=== PATIENT | male | born 1975 | race American Indian/Alaskan Native ===

== ENCOUNTER 2019-11-26 22:45 | Observation (INO) | payer MEDICARE ==
[2019-11-27 02:30] LABS: Basophils # (Auto) 0.1 K/mm3 (0.0-0.1); Basophils % (Auto) 1.2 % (0.0-1.8); Eosinophils # (Auto) 0.6 K/mm3 (0.0-0.4); Eosinophils % (Auto) 7.1 % (0.0-4.3); Hematocrit 36.5 % (35.5-45.6); Hemoglobin 11.9 gm/dl (11.8-15.2); Lymphocytes # (Auto) 1.7 K/mm3 (1.2-5.4); Lymphocytes % (Auto) 21.1 % (13.4-35.0); Mean Corpuscular HGB Conc 33 % (32-34); Mean Corpuscular Volume 89 fl (84-94); Monocytes # (Auto) 0.7 K/mm3 (0.0-0.8); Monocytes % (Auto) 8.9 % (0.0-7.3); Platelet Count 260 K/mm3 (140-440); Red Blood Count 4.09 M/mm3 (3.65-5.03); Red Cell Distribution Width 13.8 % (13.2-15.2)
[2019-11-27] MEDS ORDERED: SODIUM CHLORIDE 0.9% 1000 ML 1,000 ML IV ONE (02:50)
[2019-11-27 02:52] LABS: Calcium 9.7 mg/dL (8.4-10.2)
--- NOTE | 2019-11-27 02:54 | Emergency Department Report ---
HPI - General Chief Complaint: Hyperglycemia Time Seen by Provider: 11/27/19 02:43 - HPI HPI: Room 5 The patient is a 43-year-old male presenting with a chief complaint of hyperglycemia. The patient is a history of type 1 diabetes and is on an insulin pump. Patient states at 08:00 this morning he noticed that his pump ran out of insulin. Patient says glucose was greater than 400. The patient went to place a refill but realizes he left his insulin refills in [place]. Patient states he attempted to go to the store to buy more insulin but all the pharmacies were closed Location: [See above] Duration: [See above] Quality: [See above] Severity: [See above] Timing: [See above] Context: [See above] Modifying factors: [See above] Associated signs and symptoms: [see above] ED Past Medical Hx - Past Medical History Previous Medical History?: Yes Hx Hypertension: Yes Hx Diabetes: Yes (Type 1) Hx Renal Disease: Yes (ESRD. HD qT, Th, Sat) Additional medical history: Sarcoidosis - Surgical History Past Surgical History?: No - Family History Family history: no significant - Social History Smoking Status: Current Every Day Smoker (1/3 pack per day) Substance Use Type: None (denies illicit drug use) ED Review of Systems ROS: Stated complaint: MED REFILL, ELEVATED BLOOD SUGAR Other details as noted in HPI Constitutional: no symptoms reported Eyes: denies: eye pain ENT: denies: throat pain Respiratory: no symptoms reported Cardiovascular: denies: chest pain Endocrine: no symptoms reported Gastrointestinal: denies: abdominal pain Neurological: denies: headache Physical Exam - Physical Exam Vital Signs: Vital Signs 11/27/19 00:25 Temperature 98.3 F Pulse Rate 88 Respiratory 18 Rate Blood Pressure 145/90 O2 Sat by Pulse 98 Oximetry Physical Exam: GENERAL: The patient is well-developed well-nourished male sitting on stretcher not appearing to be in acute distress. [] HEENT: Normocephalic. Atraumatic. Extraocular motions are intact. Patient has moist mucous membranes. NECK: Supple. Trachea midline CHEST/LUNGS: Clear to auscultation. There is no respiratory distress noted. HEART/CARDIOVASCULAR: Regular. There is no tachycardia. There is no gallop rub or murmur. ABDOMEN: Abdomen is soft, nontender. Patient has normal bowel sounds. There is no abdominal distention. SKIN: There is no rash. There is no edema. There is no diaphoresis. NEURO: The patient is awake, alert, and oriented. The patient is cooperative. The patient has normal speech MUSCULOSKELETAL: There is no evidence of acute injury. ED Course Vital Signs 11/27/19 00:25 Temperature 98.3 F Pulse Rate 88 Respiratory 18 Rate Blood Pressure 145/90 O2 Sat by Pulse 98 Oximetry ED Medical Decision Making - Lab Data Result diagrams: 11/27/19 01:56 Laboratory Tests 11/27/19 11/27/19 11/27/19 01:46 01:56 01:56 WBC 7.9 RBC 4.09 Hgb 11.9 Hct 36.5 MCV 89 MCH 29 MCHC 33 RDW 13.8 Plt Count 260 Lymph % (Auto) 21.1 [place] % (Auto) 8.9 H Eos % (Auto) 7.1 H Baso % (Auto) 1.2 Lymph # 1.7 [place] # 0.7 Eos # 0.6 H Baso # 0.1 Seg Neutrophils % 61.7 Seg Neutrophils # 4.9 VBG pH Sodium 133 L Potassium 5.8 H Chloride 91.2 L Carbon Dioxide 20 L Anion Gap 28 BUN 69 H Creatinine 11.3 H Estimated GFR 6 BUN/Creatinine Ratio 6 POC Glucose 458 H Calcium 9.7 11/27/19 01:56 WBC RBC Hgb Hct MCV MCH MCHC RDW Plt Count Lymph % (Auto) [place] % (Auto) Eos % (Auto) Baso % (Auto) Lymph # [place] # Eos # Baso # Seg Neutrophils % Seg Neutrophils # VBG pH 7.276 L Sodium Potassium Chloride Carbon Dioxide Anion Gap BUN Creatinine Estimated GFR BUN/Creatinine Ratio POC Glucose Calcium - Differential Diagnosis DKA, hyperglycemia Critical care attestation.: If time is entered above; I have spent that time in minutes in the direct care of this critically ill patient, excluding procedure time. ED Disposition Clinical Impression: DKA (diabetic ketoacidoses) Disposition: OP ADMIT IP TO THIS HOSP Is pt being admited?: Yes Does the pt Need Aspirin: No Condition: Fair Instructions: Diabetic Ketoacidosis (ED) Referrals: PRIMARY CARE,MD [Primary Care Provider] - 3-5 Days Time of Disposition: 02:57 (hospitalist paged (Dr. Savannah Rasheed))
[2019-11-27] MEDS ORDERED: INSULIN REGULAR, HUMAN 100 UNITS in SODIUM CHLORIDE 0.9% 99 ML IV SCH (03:00)
[2019-11-27 03:33] LABS: Calcium 9.5 mg/dL (8.4-10.2)
[2019-11-27] MEDS ORDERED: DEXTROSE 50% IN WATER (25GM) 50 ML SYRINGE IV PRN ×2 (03:55→10:40)
[2019-11-27] MEDS ORDERED: ACETAMINOPHEN 325 MG TAB PO PRN (03:57)
[2019-11-27] MEDS ORDERED: METOCLOPRAMIDE 10 MG/2 ML INJ IV PRN ×2 (03:57→04:11)
[2019-11-27] MEDS ORDERED: ONDANSETRON 4 MG/2 ML INJ IV PRN (03:57)
--- NOTE | 2019-11-27 04:01 | History and Physical Report ---
History of Present Illness Date of examination: 11/27/19 History of present illness: 43-year-old male with a history of hypertension, diabetes, end-stage renal disease on dialysis, Wednesday, , Wednesday, sarcoidosis comes emergency room because he ran out of insulin for his pump and his monitor was reading greater than 500. He states he felt nauseous, he came to the emergency room to see if he could get her insulin shot. Patient is visiting from [place] and left his insulin cartridges by accident in [place]. He last had dialysis on Wednesday, scheduled to have dialysis today Review Of Systems: Constitutional: no weight loss, chills, fever Ears, eyes, nose, mouth and throat: no nasal congestion, no nasal discharge, no sinus pressure, blurry vision, diplopia Neck: No neck pain or rigidity. Cardiovascular: No palpitations, chest pain Respiratory: No cough, shortness of breath Gastrointestinal: No hematochezia, abdominal pain Genitourinary : no dysuria, frequency , hematuria Musculoskeletal: no muscle ache , joint pain Integumentary: no rash, no pruritis Neurological: no parathesias, focal weakness Endocrine: no cold or heat intolerance, no polyuria or polydipsia Hematologic/Lymphatic: no easy bruising, no easy bleeding, no gland swelling Allergic/Immunologic: no urticaria, no angioedema. PAST MEDICAL HISTORY:hypertension,ESRD, diabetes, sarcoidosis PAST SURGICAL HISTORY: AV fistula FAMILY HISTORY:hypertension, diabetes SOCIAL HISTORY: Smokes 1/3 pack a day, no drugs, alcohol Medications and Allergies Allergies Allergy/AdvReac Type Severity Reaction Status Date / Time No Known Allergies Allergy Verified 11/27/19 02:59 Home Medications Medication Instructions Recorded Confirmed Last Taken Type Eliquis 2.5 mg PO BID 11/27/19 11/27/19 Unknown History Hydroxychloroquine 200 mg PO DAILY 11/27/19 11/27/19 Unknown History NIFEdipine 90 mg PO DAILY 11/27/19 11/27/19 Unknown History Sevelamer HCl 800 mg PO TID 11/27/19 11/27/19 Unknown History Simvastatin 20 mg PO HS 11/27/19 11/27/19 Unknown History carvediloL 25 mg PO BID 11/27/19 11/27/19 Unknown History Active Meds: Active Medications Acetaminophen (Tylenol) 650 mg PO Q4H PRN PRN Reason: Pain MILD(1-3)/Fever >100.5/JOHN Dextrose (D50w (25gm) Syringe) 0 ml IV Q30MIN PRN; Protocol PRN Reason: Hypoglycemia Enoxaparin Sodium (Enoxaparin) 30 mg SUB-Q QDAY [facility] Insulin Human Regular 100 (units/ Sodium Chloride) 100 mls @ 7 mls/hr IV TITR ANT; Protocol Last Admin: 11/27/19 03:31 Dose: 8 units/hr, 8 mls/hr Documented by: Metoclopramide HCl (Reglan) 10 mg IV Q6H PRN PRN Reason: Nausea And Vomiting Ondansetron HCl (Zofran) 4 mg IV Q4H PRN PRN Reason: Nausea And Vomiting Sodium Chloride (Sodium Chloride Flush Syringe 10 Ml) 10 ml IV BID ANT Sodium Chloride (Sodium Chloride Flush Syringe 10 Ml) 10 ml IV PRN PRN PRN Reason: LINE FLUSH Exam - Physical Exam Narrative exam: Gen. appearance: Patient lying in bed, no apparent distress HEENT: Normocephalic, atraumatic, pupils equally round and reactive to light, extraocular movement intact, and no sclericterus,. No JVD or thyromegaly or nodule,neck supple, no carotid bruit ,mucous membranes dry, no exudate or erythema Heart: S1, S2, regular rate and rhythm Lungs: Clear to auscultation bilaterally, breathing comfortable Abdomen: Positive bowel sounds, nontender, nondistended, no organomegaly Extremity: No edema, cyanosis, clubbing Skin: No rash, nodules, warm, dry Neuro: Oriented 3, cranial nerves II-12 intact, speech is fluent, motor and sensory intact - Constitutional Vitals: Temp Pulse Resp BP Pulse Ox 98.3 F 88 18 145/90 98 11/27/19 00:25 11/27/19 00:25 11/27/19 00:25 11/27/19 00:25 11/27/19 00:25 Results - Labs CBC & Chem 7: 11/27/19 01:56 11/27/19 03:04 Labs: Abnormal lab results 11/27/19 11/27/19 11/27/19 Range/Units 01:46 01:56 01:56 [place] % (Auto) 8.9 H (0.0-7.3) % Eos % (Auto) 7.1 H (0.0-4.3) % Eos # 0.6 H (0.0-0.4) K/mm3 VBG pH (7.320-7.420) Sodium 133 L (137-145) mmol/L Potassium 5.8 H (3.6-5.0) mmol/L Chloride 91.2 L (98-107) mmol/L Carbon Dioxide 20 L (22-30) mmol/L BUN 69 H (9-20) mg/dL Creatinine 11.3 H (0.8-1.5) mg/dL Glucose 633 H* (75-100) mg/dL POC Glucose 458 H (70-105) Magnesium (1.7-2.3) mg/dL 11/27/19 11/27/19 11/27/19 Range/Units 01:56 03:04 03:04 [place] % (Auto) (0.0-7.3) % Eos % (Auto) (0.0-4.3) % Eos # (0.0-0.4) K/mm3 VBG pH 7.276 L (7.320-7.420) Sodium 130 L (137-145) mmol/L Potassium 5.9 H (3.6-5.0) mmol/L Chloride 90.1 L (98-107) mmol/L Carbon Dioxide 18 L (22-30) mmol/L BUN 70 H (9-20) mg/dL Creatinine 11.0 H (0.8-1.5) mg/dL Glucose 639 H* (75-100) mg/dL POC Glucose (70-105) Magnesium 2.50 H (1.7-2.3) mg/dL 11/27/19 Range/Units 03:39 [place] % (Auto) (0.0-7.3) % Eos % (Auto) (0.0-4.3) % Eos # (0.0-0.4) K/mm3 VBG pH (7.320-7.420) Sodium (137-145) mmol/L Potassium (3.6-5.0) mmol/L Chloride (98-107) mmol/L Carbon Dioxide (22-30) mmol/L BUN (9-20) mg/dL Creatinine (0.8-1.5) mg/dL Glucose (75-100) mg/dL POC Glucose > 500 H (70-105) Magnesium (1.7-2.3) mg/dL Assessment and Plan Assessment DKA Start insulin protocol No IV fluids secondary to end-stage renal disease Monitor serial chemistries, check hemoglobin A1c Consult critical care End-stage renal disease needing dialysis/hyperkalemia Consult renal Hypertension Continue outpatient medications DVT prophylaxis
[2019-11-27 05:37] LABS: Calcium 9.2 mg/dL (8.4-10.2)
[2019-11-27 06:32] LABS: Calcium 9.1 mg/dL (8.4-10.2)
[2019-11-27] MEDS ORDERED: D5W/0.45% NACL/KCL 20 MEQ 20 MEQ/1,000 ML BAG IV SCH (09:00)
--- NOTE | 2019-11-27 09:38 | Consultation ---
History of Present Illness - History of Present Illness My assessment and plan are as follows End-stage renal disease: Patient will continue with hemodialysis treatment From renal standpoint his potassium is better from 5.9-4.5 this was likely resulting from insulin deficiency His bicarbonate is around 18 patient likely has diabetic ketoacidosis Hemodialysis will be helpful in this situation to correct his acidosis And hence will dialyze him for 3 hours today Anemia and end-stage renal disease: To monitor and follow, erythropoietin as required goal hemoglobin dialysis patients usually occurring 10 and 12, we will follow Current hemoglobin appears to be satisfactory no need for erythropoietin Patient was out of insulin admitted here with uncontrolled diabetes mellitus type 1 Secondary hyperparathyroidism: Monitor phosphorus and PTH periodically and adjust binders as needed Diet and nutrition: Fluid restriction 1200 mL per day, high-protein diet may benefit from nutrition consultation , patient is protein intake should be 1.5 g per KG body weight Hypertension and volume continue to monitor, educated about fluid restriction sodium restriction Patient does exhibit good understanding of the renal related issues All renal related issues were discussed with patient Prognosis remains guarded at this time We'll continue to follow and make recommendation from renal standpoint If you have ave any questions please feel free to contact me at [phone] Yogi Lind M.D. [facility] [address] [place] [id number] History of presenting illness Patient is a 43-year-old male who has been admitted here with uncontrolled diabetes mellitus type 1, he ran out of his insulin blood sugar was running more than 400, patient is currently dialysis dependent and currently dialyzes on Wednesday and Wednesday scheduled, he is follwed by his speech language pathologist assistant in [place] and has bene on HD since past three years He has no issues with shortness of breath, or any symptoms of fluid overload, events of this admission were reviewed Past medical history significant for End-stage renal disease currently on maintenance dialysis Wednesday Anemia and end-stage renal disease Secondary hyperparathyroidism Hypertension Diabetes mellitus type 1 Current allergies: None Home medication present medication: Reviewed Social history, family history: Reviewed Review of system: Positive for ran out of insulin blood sugar was running high no complaints of any shortness of breath Patient is a smoker advised to quit smoking Patient denies having issues with his access Physical examination: General: No acute distress HEENT: Oral mucosa moist no icterus, no facial swelling Neck: Supple no thyromegaly no lymphadenopathy no JVD Chest: Clear to auscultation no crackles rales or wheezes Heart: Regular rate and rhythm S1-S2 heard no S3-S4 Abdomen: Soft nontender no organomegaly no masses palpable no renal bruit no suprapubic masses no CVA tenderness Dermatology: No skin rashes noted Extremity: Less than 1+ peripheral edema, dry skin no petechial rashes Musculoskeletal: No joint effusion noted in knee and ankle area Psych: No evidence of agitation and aggression noted Neurological: Alert awake follows commands no tremors no myoclonus Back: No CVA tenderness Medications and Allergies Allergies Allergy/AdvReac Type Severity Reaction Status Date / Time No Known Allergies Allergy Verified 11/27/19 02:59 Home Medications Medication Instructions Recorded Confirmed Last Taken Type Eliquis 2.5 mg PO BID 11/27/19 11/27/19 Unknown History Hydroxychloroquine 200 mg PO DAILY 11/27/19 11/27/19 Unknown History NIFEdipine 90 mg PO DAILY 11/27/19 11/27/19 Unknown History Sevelamer HCl 800 mg PO TID 11/27/19 11/27/19 Unknown History Simvastatin 20 mg PO HS 11/27/19 11/27/19 Unknown History carvediloL 25 mg PO BID 11/27/19 11/27/19 Unknown History Active Meds: Active Medications Acetaminophen (Tylenol) 650 mg PO Q4H PRN PRN Reason: Pain MILD(1-3)/Fever >100.5/JOHN Dextrose (D50w (25gm) Syringe) 0 ml IV Q30MIN PRN; Protocol PRN Reason: Hypoglycemia Enoxaparin Sodium (Enoxaparin) 30 mg SUB-Q QDAY ANT Insulin Human Regular 100 (units/ Sodium Chloride) 100 mls @ 7 mls/hr IV TITR ANT; Protocol Last Titration: 11/27/19 08:33 Dose: 1.5 units/hr, 1.5 mls/hr Documented by: Potassium Chloride/Dextrose/Sod Cl (D5w/0.45% Nacl/Kcl 20 Meq) 20 meq in 1,000 mls @ 125 mls/hr IV DIRECT ANT Metoclopramide HCl (Reglan) 2.5 mg IV Q6H PRN PRN Reason: Nausea And Vomiting Ondansetron HCl (Zofran) 4 mg IV Q4H PRN PRN Reason: Nausea And Vomiting Last Admin: 11/27/19 04:04 Dose: 4 mg Documented by: Sodium Chloride (Sodium Chloride Flush Syringe 10 Ml) 10 ml IV BID ANT Sodium Chloride (Sodium Chloride Flush Syringe 10 Ml) 10 ml IV PRN PRN PRN Reason: LINE FLUSH Exam - Vital Signs Vital signs: Vital Signs Temp Pulse Resp BP Pulse Ox 98.3 F 88 18 145/90 98 11/27/19 00:25 11/27/19 00:25 11/27/19 00:25 11/27/19 00:25 11/27/19 00:25 Results - Lab Results 11/27/19 01:56 11/27/19 10:37 Most recent lab results Calcium 9.1 mg/dL (8.4-10.2) 11/27/19 05:57 Phosphorus 3.80 mg/dL (2.5-4.5) 11/27/19 04:19 Magnesium 2.40 mg/dL (1.7-2.3) H 11/27/19 04:19
[2019-11-27] MEDS ORDERED: SODIUM CHLORIDE 0.9% 100 ML IV PRN ×2 (09:39→09:47)
[2019-11-27] MEDS ORDERED: ENOXAPARIN 30 MG/0.3 ML INJ SUB-Q ONE (10:21)
[2019-11-27] MEDS ORDERED: DEXTROSE 50% IN WATER (25GM) 50 ML SYRINGE IV ONE (10:21)
[2019-11-27] MEDS: ENOXAPARIN 30 MG/0.3 ML INJ SUB-Q SCH (10:31)
[2019-11-27 11:19] LABS: Calcium 9.4 mg/dL (8.4-10.2)
[2019-11-27] MEDS: INSULIN REGULAR, HUMAN 100 UNITS/1 ML SUB-Q SCH ×3 (11:21→22:29)
[2019-11-27] MEDS: SEVELAMER CARBONATE 800 MG TAB PO SCH ×2 (12:30→16:30)
[2019-11-27 13:18] LABS: Hepatitis B Surface Antigen Non-Reactive (Negative); Hepatitis C Virus Antibody Non-Reactive (NonReactive)
[2019-11-27] MEDS ORDERED: INSULIN REGULAR, HUMAN 100 UNITS/1 ML SUB-Q ONE (13:52)
[2019-11-27] MEDS ORDERED: SEVELAMER HCL 800 MG PO SCH (14:00)
--- NOTE | 2019-11-27 19:51 | Progress Note ---
Assessment and Plan Assessment and plan: 43-year-old male with a history of hypertension, diabetes, end-stage renal disease on dialysis, Wednesday, , Wednesday, sarcoidosis comes emergency room because he ran out of insulin for his pump and his monitor was reading greater than 500. He states he felt nauseous, he came to the emergency room to see if he could get her insulin shot. Patient is visiting from [place] and left his insulin cartridges by accident in [place]. He last had dialysis on Wednesday, scheduled to have dialysis today * DKA likely secondary to lack of insulin on his insulin pump v with no other infectious process noted,PE nevertheless patient states that he does have regular insulin which could use but unfortunately does not have the syringes. DKA Start insulin protocol No IV fluids DKA. End-stage renal disease Monitor serial chemistries, check hemoglobin A1c Consult critical care Metabolic acidosis: secondary to DKA End-stage renal disease needing dialysis/hyperkalemia Consult renal Hypertension Continue outpatient medications Anticipate discharge in 24 hours if patient continues to improve. Patient is gap has closed will transition to sliding scale coverage and transfer patient to [facility] surgical unit. History Interval history: Patient seen and examined today resting comfortably. He unfortunately left his insulin pump cartridges. He denies any chest pain nausea vomiting. No other adverse event reported to me at this time. Hospitalist Physical - Physical exam Narrative exam: VITAL SIGNS: Reviewed. GENERAL: The patient appears normally developed, Vital signs as documented. HEAD: No signs of head trauma. EYES: Pupils are equal. Extraocular motions intact. EARS: Hearing grossly intact. MOUTH: Oropharynx is normal. NECK: No adenopathy, no JVD. CHEST: Chest with clear breath sounds bilaterally. No wheezes, rales, or rhonchi. CARDIAC: Regular rate and rhythm. S1 and S2, without murmurs, gallops, or rubs. VASCULAR: No Edema. Peripheral pulses normal and equal in all extremities. ABDOMEN: Soft, non tender and non distended. No rebound or guarding, and no masses palpated. Bowel Sounds normal. MUSCULOSKELETAL: Good range of motion of all major joints. Extremities without clubbing, cyanosis or edema. NEUROLOGIC EXAM: Alert and oriented x 3 No focal sensory or strength deficits. Speech normal. Follows commands. PSYCHIATRIC: Mood normal. SKIN: detial exam as documented in skin assessment - Constitutional Vitals: Temp Pulse Resp BP Pulse Ox 98.7 F 87 18 141/90 98 11/27/19 19:03 11/27/19 19:03 11/27/19 19:03 11/27/19 19:03 11/27/19 19:03 Results - Labs CBC & Chem 7: 11/27/19 01:56 11/27/19 10:37 Labs: Laboratory Last Values WBC 7.9 K/mm3 (4.5-11.0) 11/27/19 01:56 RBC 4.09 M/mm3 (3.65-5.03) 11/27/19 01:56 Hgb 11.9 gm/dl (11.8-15.2) 11/27/19 01:56 Hct 36.5 % (35.5-45.6) 11/27/19 01:56 MCV 89 fl (84-94) 11/27/19 01:56 MCH 29 pg (28-32) 11/27/19 01:56 MCHC 33 % (32-34) 11/27/19 01:56 RDW 13.8 % (13.2-15.2) 11/27/19 01:56 Plt Count 260 K/mm3 (140-440) 11/27/19 01:56 Lymph % (Auto) 21.1 % (13.4-35.0) 11/27/19 01:56 [place] % (Auto) 8.9 % (0.0-7.3) H 11/27/19 01:56 Eos % (Auto) 7.1 % (0.0-4.3) H 11/27/19 01:56 Baso % (Auto) 1.2 % (0.0-1.8) 11/27/19 01:56 Lymph # 1.7 K/mm3 (1.2-5.4) 11/27/19 01:56 [place] # 0.7 K/mm3 (0.0-0.8) 11/27/19 01:56 Eos # 0.6 K/mm3 (0.0-0.4) H 11/27/19 01:56 Baso # 0.1 K/mm3 (0.0-0.1) 11/27/19 01:56 Seg Neutrophils % 61.7 % (40.0-70.0) 11/27/19 01:56 Seg Neutrophils # 4.9 K/mm3 (1.8-7.7) 11/27/19 01:56 VBG pH 7.276 (7.320-7.420) L 11/27/19 01:56 Sodium 138 mmol/L (137-145) 11/27/19 10:37 Potassium 5.0 mmol/L (3.6-5.0) 11/27/19 10:37 Chloride 100.4 mmol/L (98-107) 11/27/19 10:37 Carbon Dioxide 20 mmol/L (22-30) L 11/27/19 10:37 Anion Gap 23 mmol/L 11/27/19 10:37 BUN 76 mg/dL (9-20) H 11/27/19 10:37 Creatinine 11.8 mg/dL (0.8-1.5) H 11/27/19 10:37 Estimated GFR 6 ml/min 11/27/19 10:37 BUN/Creatinine Ratio 6 % 11/27/19 10:37 Glucose 169 mg/dL (75-100) H 11/27/19 10:37 POC Glucose 382 (70-105) H 11/27/19 13:50 Hemoglobin A1c 9.8 % (4-6) H 11/27/19 04:19 Ketones Quantitative Small (Negative) 11/27/19 03:04 Calcium 9.4 mg/dL (8.4-10.2) 11/27/19 10:37 Phosphorus 3.30 mg/dL (2.5-4.5) 11/27/19 10:37 Magnesium 2.70 mg/dL (1.7-2.3) H 11/27/19 10:37 Hepatitis A IgM Ab Non-reactive (NonReactive) 11/27/19 10:37 Hep Bs Antigen Non-reactive (Negative) 11/27/19 10:37 Hep B Core IgM Ab Non-reactive (NonReactive) 11/27/19 10:37 Hepatitis C Antibody Non-reactive (NonReactive) 11/27/19 10:37 Active Medications - Current Medications Current Medications: Generic Name Dose Route Start Last Admin Trade Name Freq PRN Reason Stop Dose Admin Acetaminophen 650 mg 11/27/19 03:57 Tylenol PO Q4H PRN Pain MILD(1-3)/Fever >100.5/JOHN Apixaban 2.5 mg 11/27/19 22:00 Eliquis PO BID ANT Carvedilol 25 mg 11/27/19 22:00 Coreg PO Q12HR ANT Dextrose 0 ml 11/27/19 03:55 11/27/19 10:31 D50w (25gm) Syringe IV 50 ml Q30MIN PRN Administration Hypoglycemia Protocol Dextrose 50 ml 11/27/19 10:40 D50w (25gm) Syringe IV Q30MIN PRN Hypoglycemia Protocol Enoxaparin Sodium 30 mg 11/27/19 10:00 11/27/19 10:31 Enoxaparin SUB-Q 30 mg QDAY ANT Administration Hydroxychloroquine Sulfate 200 mg 11/28/19 10:00 Plaquenil PO QDAY [facility] Sodium Chloride 100 mls @ 999 mls/hr 11/27/19 09:47 Nacl 0.9% IV ISAC PRN Hypotension Insulin Human Regular 0 units 11/27/19 11:30 11/27/19 16:30 Humulin R SUB-Q Not Given ACHS [facility] Protocol Metoclopramide HCl 2.5 mg 11/27/19 04:11 Reglan IV Q6H PRN Nausea And Vomiting Nifedipine 90 mg 11/28/19 10:00 Procardia Xl PO QDAY [facility] Ondansetron HCl 4 mg 11/27/19 03:57 11/27/19 04:04 Zofran IV 4 mg Q4H PRN Administration Nausea And Vomiting Pravastatin Sodium 40 mg 11/27/19 22:00 Pravachol PO QHS [facility] Sevelamer Carbonate 800 mg 11/27/19 11:30 11/27/19 16:30 Renvela PO Not Given AC ANT Sodium Chloride 10 ml 11/27/19 10:00 11/27/19 10:31 Sodium Chloride Flush Syringe 10 Ml IV 10 ml BID ANT Administration Sodium Chloride 10 ml 11/27/19 03:57 Sodium Chloride Flush Syringe 10 Ml IV PRN PRN LINE FLUSH
[2019-11-27 21:29] LABS: Calcium 8.9 mg/dL (8.4-10.2)
[2019-11-27] MEDS ORDERED: NON-FORMULARY EACH (Simvastatin 20 MG) PO SCH (22:00)
[2019-11-27] MEDS ORDERED: ELIQUIS 2.5 MG PO SCH (22:00)
[2019-11-27] MEDS ORDERED: NON-FORMULARY EACH (Carvedilol 25 MG) PO SCH (22:00)
[2019-11-27] MEDS ORDERED: PRAVASTATIN 40 MG TAB PO SCH (22:00)
[2019-11-27] MEDS: carvediloL 25 MG TAB PO SCH (22:28)
[2019-11-27] MEDS: APIXABAN 2.5 MG TAB PO SCH (22:28)
[2019-11-28] MEDS ORDERED: INSULIN REGULAR, HUMAN 100 UNITS/1 ML SUB-Q ONE (08:17)
--- NOTE | 2019-11-28 08:30 | Progress Note ---
Subjective Interval history: Patient was seen today for follow-up on multiple renal related issues Has had hemodialysis treatment yesterday tolerated well No ultrafiltration was done with dialysis Patient denies any complaints of chest pain shortness of breath nausea vomiting Events over 24 hours were noted Vitals intake output medications were reviewed Allergies: Reviewed Social/family history: Reviewed Physical examination: Gen.: No acute distress HEENT: Oral mucosa moist, no icterus Neck: Supple no thyromegaly maass or JVD Chest: Clear to auscultation Heart: Regular rate and rhythm S1-S2 heard no S3-S4 Abdomen: Soft nontender no suprapubic masses nor organomegaly Extremity: Dry skin less than 1+ edema,No petechial rashes Psych: No evidence of any agitation and aggression noted Neurological: Alert awake Assessment and plan End-stage renal disease: Patient will continue with hemodialysis treatment now on Wednesday and Wednesday as tolerated, monitor dialysis related labs Patient tolerated hemodialysis treatment fairly well yesterday Outpatient dialysis days are Wednesday and Wednesday which he will resume upon discharge Have any ketoacidosis appears to be clinically doing better he was out of insulin Hypertension and volume: Monitor for now, dialysis nurse to ultrafiltrate as tolerated goal systolic blood pressure less than 140, Anemia and end-stage renal disease: Monitor and follow erythropoietin as req uired Secondary hyperparathyroidism: Monitor phosphorus and PTH periodically and adjust binders as needed Diet and nutrition: Fluid restriction 1200 mL per day, high-protein preferably 1.5 g per KG body weight All dialysis related issues have been discussed with the patient Patient does exhibit good understanding of the renal related issues We will continue to follow and make recommendation from renal standpoint. For any questions please call me at: [phone] Objective - Vital Signs Vital signs: Vital Signs - 12hr 11/27/19 11/27/19 11/28/19 20:44 21:26 00:47 Temperature 98.1 F Pulse Rate Respiratory 20 16 20 Rate Blood Pressure 145/88 O2 Sat by Pulse 100 100 Oximetry 11/28/19 04:54 Temperature 97.9 F Pulse Rate 83 Respiratory 16 Rate Blood Pressure 146/85 O2 Sat by Pulse 99 Oximetry - Lab 11/27/19 01:56 11/27/19 20:38 Most recent lab results Calcium 8.9 mg/dL (8.4-10.2) 11/27/19 20:38 Phosphorus 3.50 mg/dL (2.5-4.5) 11/27/19 20:38 Magnesium 1.90 mg/dL (1.7-2.3) 11/27/19 20:38 Medications & Allergies - Medications Allergies/Adverse Reactions: Allergies No Known Allergies Allergy (Verified 11/27/19 02:59) Home Medications: Home Medications Medication Instructions Recorded Confirmed Last Taken Type Eliquis 2.5 mg PO BID 11/27/19 11/27/19 Unknown History Hydroxychloroquine 200 mg PO DAILY 11/27/19 11/27/19 Unknown History NIFEdipine 90 mg PO DAILY 11/27/19 11/27/19 Unknown History Sevelamer HCl 800 mg PO TID 11/27/19 11/27/19 Unknown History Simvastatin 20 mg PO HS 11/27/19 11/27/19 Unknown History carvediloL 25 mg PO BID 11/27/19 11/27/19 Unknown History Active Medications: Generic Name Dose Route Start Last Admin Trade Name Freq PRN Reason Stop Dose Admin Acetaminophen 650 mg 11/27/19 03:57 Tylenol PO Q4H PRN Pain MILD(1-3)/Fever >100.5/JOHN Apixaban 2.5 mg 11/27/19 22:00 11/27/19 22:28 Eliquis PO 2.5 mg BID ANT Administration Carvedilol 25 mg 11/27/19 22:00 11/27/19 22:28 Coreg PO 25 mg Q12HR ANT Administration Dextrose 0 ml 11/27/19 03:55 11/27/19 10:31 D50w (25gm) Syringe IV 50 ml Q30MIN PRN Administration Hypoglycemia Protocol Dextrose 50 ml 11/27/19 10:40 D50w (25gm) Syringe IV Q30MIN PRN Hypoglycemia Protocol Enoxaparin Sodium 30 mg 11/27/19 10:00 11/27/19 10:31 Enoxaparin SUB-Q 30 mg QDAY ANT Administration Hydroxychloroquine Sulfate 200 mg 11/28/19 10:00 Plaquenil PO QDAY ANT Sodium Chloride 100 mls @ 999 mls/hr 11/27/19 09:47 Nacl 0.9% IV ISAC PRN Hypotension Insulin Human Regular 0 units 11/27/19 11:30 11/27/19 22:29 Humulin R SUB-Q 4 units ACHS ANT Administration Protocol Metoclopramide HCl 2.5 mg 11/27/19 04:11 Reglan IV Q6H PRN Nausea And Vomiting Nifedipine 90 mg 11/28/19 10:00 Procardia Xl PO QDAY ANT Ondansetron HCl 4 mg 11/27/19 03:57 11/27/19 04:04 Zofran IV 4 mg Q4H PRN Administration Nausea And Vomiting Pravastatin Sodium 40 mg 11/27/19 22:00 11/27/19 22:28 Pravachol PO 40 mg QHS ANT Administration Sevelamer Carbonate 800 mg 11/27/19 11:30 11/27/19 16:30 Renvela PO Not Given AC ANT Sodium Chloride 10 ml 11/27/19 10:00 11/27/19 22:29 Sodium Chloride Flush Syringe 10 Ml IV 10 ml BID ANT Administration Sodium Chloride 10 ml 11/27/19 03:57 Sodium Chloride Flush Syringe 10 Ml IV PRN PRN LINE FLUSH
[2019-11-28] MEDS: INSULIN REGULAR, HUMAN 100 UNITS/1 ML SUB-Q SCH ×3 (09:26→16:31)
[2019-11-28] MEDS: SEVELAMER CARBONATE 800 MG TAB PO SCH ×3 (09:27→16:32)
[2019-11-28] MEDS: carvediloL 25 MG TAB PO SCH (09:27)
[2019-11-28] MEDS: APIXABAN 2.5 MG TAB PO SCH (09:27)
[2019-11-28] MEDS: ENOXAPARIN 30 MG/0.3 ML INJ SUB-Q SCH (09:27)
[2019-11-28] MEDS ORDERED: HYDROXYCHLOROQUINE 200 MG PO SCH (10:00)
[2019-11-28] MEDS ORDERED: NIFEdipine XL 90 MG TAB PO SCH (10:00)
[2019-11-28] MEDS ORDERED: NON-FORMULARY EACH (Nifedipine 90 MG) PO SCH (10:00)
[2019-11-28] MEDS ORDERED: HYDROXYCHLOROQUINE 200 MG TAB PO SCH (10:00)
--- NOTE | 2019-11-28 12:14 | Discharge Summary ---
Providers - Providers Date of Admission: 11/27/19 04:30 Attending physician: KASSIDY CASTRO MD 11/27/19 03:57 Consult to Physician [CONS] Routine Comment: Consulting Provider: DAVE DE DIOS Physician Instructions: Reason For Exam: hd Primary care physician: OILER BANDER Hospitalization Condition: Fair Hospital course: refused proper insulin dose. Wants long acting even though refused at night wants to be discharged, clinically stable Disposition: [id number] TO HOME OR SELFCARE Exam - Constitutional Vitals: Temp Pulse Resp BP Pulse Ox 98.3 F 80 16 136/80 97 11/28/19 11:01 11/28/19 11:01 11/28/19 11:01 11/28/19 11:01 11/28/19 11:01 Plan Activity: advance as tolerated, fall precautions Diet: diabetic Special Instructions: record daily weights, record daily BP diary Follow up with: SERENA CAMPBELL MD [Primary Care Provider] - 3-5 Days LILIAM ROBERTO MD [Staff Physician] - 7 Days Prescriptions: Insulin Detemir [Levemir] 20 unit SQ QHS #100 vial Pravastatin [Pravachol] 40 mg PO QHS #30 tablet Syring-Needl,Disp,Insul,0.3 ml [Insulin Syringe] 1 each MC QID #100 disp.syrin Other Discharge Orders: Glucometer (Amb) Location: None Selected Glucometer supplies[Amb] Location: None Selected
[2019-11-28 12:44] LABS: Hematocrit 31.7 % (35.5-45.6); Hemoglobin 10.4 gm/dl (11.8-15.2); Mean Corpuscular HGB Conc 33 % (32-34); Mean Corpuscular Volume 88 fl (84-94); Platelet Count 238 K/mm3 (140-440); Red Blood Count 3.59 M/mm3 (3.65-5.03)
[2019-11-28 13:04] LABS: Calcium 8.6 mg/dL (8.4-10.2)
[2019-11-28] MEDS ORDERED: SODIUM CHLORIDE 0.9% 100 ML IV PRN ×2 (15:57→16:05)
[2019-11-28 19:56] VITALS: BP 135/72
== END 2019-11-28 20:15 | disposition home or self-care (01) ==
LOC: ED 22:45 → INTOOBSV 11-27 04:30 → IMCU 11-27 04:30 → CC1 11-27 09:08 → 3A 11-27 10:51
PROVIDERS: ADMIT Internal Medicine; ATTEND Internal Medicine
DX: E10.10 Type 1 diabetes mellitus with ketoacidosis without coma (principal); E10.22 Type 1 diabetes mellitus with diabetic chronic kidney disease; E10.65 Type 1 diabetes mellitus with hyperglycemia; I12.0 Hypertensive chronic kidney disease with stage 5 chronic kidney disease or end stage renal disease; N18.6 End stage renal disease; D63.1 Anemia in chronic kidney disease; E87.5 Hyperkalemia; N25.81 Secondary hyperparathyroidism of renal origin; Z99.2 Dependence on renal dialysis; F17.210 Nicotine dependence, cigarettes, uncomplicated; Z96.41 Presence of insulin pump (external) (internal); Z79.02 Long term (current) use of antithrombotics/antiplatelets; Z79.899 Other long term (current) drug therapy
CPT/HCPCS: 36415; 80048; 80074; 82010; 82805; 82962; 83036; 83735; 83880; 84100; 85025; 85027; 94760; 96372; 96374; 96375; 96376; 99284; A9270; G0378; J1650; J7030; 96365; 96366; J1815